=== PATIENT | male | born 2000 | race American Indian/Alaskan Native ===

== ENCOUNTER 2021-10-19 10:34 | Emergency (ER) | payer SELFPAY ==
[2021-10-19] MEDS ORDERED: LORazepam 2 MG/ML VIAL IV ONE (11:32)
[2021-10-19] MEDS ORDERED: ASPIRIN 325 MG TAB PO ONE (11:32)
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
[2021-10-19 12:54] LABS: Basophils % (Auto) 0.2 % (0.0-1.8); Eosinophils # (Auto) 0.1 K/mm3 (0.0-0.4); Eosinophils % (Auto) 0.6 % (0.0-4.3); Hematocrit 46.8 % (35.5-45.6); Hemoglobin 15.7 gm/dl (11.8-15.2); Lymphocytes # (Auto) 1.9 K/mm3 (1.2-5.4); Lymphocytes % (Auto) 20.7 % (13.4-35.0); Mean Corpuscular HGB Conc 33 % (32-34); Mean Corpuscular Volume 93 fl (84-94); Monocytes # (Auto) 0.9 K/mm3 (0.0-0.8); Monocytes % (Auto) 9.9 % (0.0-7.3); Platelet Count 275 K/mm3 (140-440); Red Blood Count 5.03 M/mm3 (3.65-5.03); Red Cell Distribution Width 13.7 % (13.2-15.2)
[2021-10-19 13:15] LABS: Creatine Kinase MB 7.9 ng/mL (0.0-4.0)
[2021-10-19 13:16] LABS: BUN/Creatinine Ratio 25; Blood Urea Nitrogen 25 mg/dL (9-20); Calcium 8.7 mg/dL (8.4-10.2); Hemolysis Index 9
[2021-10-19] MEDS ORDERED: SODIUM CHLORIDE 0.9% 1000 ML 1,000 ML IV ONE ×3 (13:19→21:11)
--- NOTE | 2021-10-19 14:30 | XRay Report ---
CHEST 1 VIEW INDICATION: chest pain. COMPARISON: None FINDINGS: Support devices: None. Heart: Within normal limits. Lungs/Pleura: No acute air space or interstitial disease. Additional findings: None. IMPRESSION: No acute findings. Signer Name: Mynor Hunt Jr, MD Signed: 10/19/2021 2:26 PM Workstation Name: [id number]
[2021-10-19 22:34] LABS: Bilirubin,Urine NEG (Negative); Blood,Urine NEG (Negative); Color,Urine Yellow (Yellow); Mucus,Urine FEW /HPF; Protein,Urine <15 mg/dL mg/dL (Negative); RBC,Urine < 1.0 /HPF (0.0-6.0)
[2021-10-19 22:42] LABS: Amphetamine Screen,Urine PRESUMPTIVE POSITIVE; Benzodiazepines Screen,Urine PRESUMPTIVE POSITIVE; Cannabinoid Screen,Urine PRESUMPTIVE POSITIVE; Cocaine Screen,Urine PRESUMPTIVE NEGATIVE; Methadone Screen,Urine PRESUMPTIVE NEGATIVE; Opiate Screen,Urine PRESUMPTIVE NEGATIVE
--- NOTE | 2021-10-20 11:30 | Electrocardiograph Report ---
[facility] Test Date: 2021-10-19 Test Time: 10:59:44 Pat Name: IBETH DEL REAL Department: Room: Gender: M Monotype Operator: NADIA : 2000 Requested By: FREDIS ROSS Order Number: [id number] Reading MD: Shankar Soria Measurements Intervals [place] Rate: 75 P: 6 PA: 146 QRS: 82 QRSD: 93 T: 65 QT: 372 QTc: 416 Interpretive Statements Sinus rhythm Inferior infarct, acute Borderline ST elevation, anterior leads No previous ECG available for comparison Electronically Signed On 10-20-2021 11:30:30 EDT by Shankar oSria
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
[2021-10-20 13:59] LABS: BUN/Creatinine Ratio 17; Blood Urea Nitrogen 15 mg/dL (9-20); Hemolysis Index 8
--- NOTE | 2021-10-20 16:12 | Event Note ---
Date: 10/20/21 (11:30 am) Progress FU assessment of patient in psych. Patient had presented with complaints of CP and feeling down about his brother's recent passing. Denied SI, HI @ the time and now. Uncxlear why patient was placed in psych. Was seen by psych today, who recommended d/c home. Denies CP @ this time. Denies SI, HI. Denies visual and auditory hallucinations. ED General adult EXAM - General General appearance: alert, in no apparent distress Limitations: No Limitations - Head Head exam: Positive: atraumatic, normocephalic - Eye Eye exam: PERRL, EOMI - ENT ENT exam: Positive: mucous membranes moist, other (airway patent) - Neck Neck exam: Positive: other (supple; no JVD) - Respiratory Respiratory exam: Positive: other (good air entry, nml I:E, CTAB, no use of CHRISSY) - Cardiovascular Cardiovascular Exam: Positive: regular rate. Negative: rubs, gallop - GI/Abdominal GI/Abdominal exam: Positive: soft, normal bowel sounds. Negative: distended, tenderness - Extremities Extremities exam: Positive: other (no lower extremity edema; non tender calves; neg Boris's sign bilaterally) - Back Back exam: full ROM. denies: tenderness - Neurological Neurological exam: Positive: alert, oriented X3, CN II-XII intact. Negative: motor sensory deficit - Psychiatric Psychiatric exam: Positive: normal affect. Negative: homicidal ideation, suicidal ideation - Skin Skin exam: Positive: warm, normal color ED Medical Decision Making - Lab Data Result diagrams: 10/19/21 12:20 10/20/21 13:27 Laboratory Results - last 72 hr 10/19/21 10/19/21 10/19/21 12:20 12:20 12:20 WBC 9.2 RBC 5.03 Hgb 15.7 H Hct 46.8 H MCV 93 MCH 31 MCHC 33 RDW 13.7 Plt Count 275 Lymph % (Auto) 20.7 [place] % (Auto) 9.9 H Eos % (Auto) 0.6 Baso % (Auto) 0.2 Lymph # (Auto) 1.9 [place] # (Auto) 0.9 H Eos # (Auto) 0.1 Baso # (Auto) 0.0 Seg Neutrophils % 68.6 Seg Neutrophils # 6.3 D-Dimer < 135.00 Sodium 134 L Potassium 4.6 Chloride 99.0 Carbon Dioxide 24 Anion Gap 16 BUN 25 H Creatinine 1.0 Estimated GFR > 60 BUN/Creatinine Ratio 25 Glucose 69 L Calcium 8.7 Total Creatine Kinase 1119 H CK-MB (CK-2) 7.9 H CK-MB (CK-2) Rel Index 0.7 Troponin T < 0.010 Urine Color Urine Turbidity Urine pH Ur Specific [place] Urine Protein Urine Glucose (UA) Urine Ketones Urine Blood Urine Nitrite Urine Bilirubin Urine Urobilinogen Ur Leukocyte Esterase Urine WBC (Auto) Urine RBC (Auto) U Epithel Cells (Auto) Urine Mucus Salicylates Urine Opiates Screen Urine Methadone Screen Acetaminophen Ur Barbiturates Screen Ur Phencyclidine Scrn Ur Amphetamines Screen U Benzodiazepines Scrn Urine Cocaine Screen U Marijuana (THC) Screen Drugs of Abuse Note Plasma/Serum Alcohol 10/19/21 10/19/21 10/19/21 12:20 12:20 12:20 WBC RBC Hgb Hct MCV MCH MCHC RDW Plt Count Lymph % (Auto) [place] % (Auto) Eos % (Auto) Baso % (Auto) Lymph # (Auto) [place] # (Auto) Eos # (Auto) Baso # (Auto) Seg Neutrophils % Seg Neutrophils # D-Dimer Sodium Potassium Chloride Carbon Dioxide Anion Gap BUN Creatinine Estimated GFR BUN/Creatinine Ratio Glucose Calcium Total Creatine Kinase CK-MB (CK-2) CK-MB (CK-2) Rel Index Troponin T Urine Color Urine Turbidity Urine pH Ur Specific [place] Urine Protein Urine Glucose (UA) Urine Ketones Urine Blood Urine Nitrite Urine Bilirubin Urine Urobilinogen Ur Leukocyte Esterase Urine WBC (Auto) Urine RBC (Auto) U Epithel Cells (Auto) Urine Mucus Salicylates 2.3 L Urine Opiates Screen Urine Methadone Screen Acetaminophen 5.0 L Ur Barbiturates Screen Ur Phencyclidine Scrn Ur Amphetamines Screen U Benzodiazepines Scrn Urine Cocaine Screen U Marijuana (THC) Screen Drugs of Abuse Note Plasma/Serum Alcohol < 0.01 10/19/21 10/19/21 10/19/21 16:33 22:19 22:19 WBC RBC Hgb Hct MCV MCH MCHC RDW Plt Count Lymph % (Auto) [place] % (Auto) Eos % (Auto) Baso % (Auto) Lymph # (Auto) [place] # (Auto) Eos # (Auto) Baso # (Auto) Seg Neutrophils % Seg Neutrophils # D-Dimer Sodium Potassium Chloride Carbon Dioxide Anion Gap BUN Creatinine Estimated GFR BUN/Creatinine Ratio Glucose Calcium Total Creatine Kinase 978 H CK-MB (CK-2) CK-MB (CK-2) Rel Index Troponin T Urine Color Yellow Urine Turbidity Clear Urine pH 5.0 Ur Specific [place] 1.027 Urine Protein <15 mg/dl Urine Glucose (UA) Neg Urine Ketones 80 Urine Blood Neg Urine Nitrite Neg Urine Bilirubin Neg Urine Urobilinogen 2.0 Ur Leukocyte Esterase Neg Urine WBC (Auto) 3.0 Urine RBC (Auto) < 1.0 U Epithel Cells (Auto) 1.0 Urine Mucus Few Salicylates Urine Opiates Screen Presumptive negative Urine Methadone Screen Presumptive negative Acetaminophen Ur Barbiturates Screen Presumptive negative Ur Phencyclidine Scrn Presumptive negative Ur Amphetamines Screen Presumptive positive U Benzodiazepines Scrn Presumptive positive Urine Cocaine Screen Presumptive negative U Marijuana (THC) Screen Presumptive positive Drugs of Abuse Note Disclamer Plasma/Serum Alcohol 10/20/21 10/20/21 13:27 13:27 WBC RBC Hgb Hct MCV MCH MCHC RDW Plt Count Lymph % (Auto) [place] % (Auto) Eos % (Auto) Baso % (Auto) Lymph # (Auto) [place] # (Auto) Eos # (Auto) Baso # (Auto) Seg Neutrophils % Seg Neutrophils # D-Dimer Sodium 137 Potassium 4.4 Chloride 103.8 Carbon Dioxide 24 Anion Gap 14 BUN 15 Creatinine 0.9 Estimated GFR > 60 BUN/Creatinine Ratio 17 Glucose 104 H Calcium 9.0 Total Creatine Kinase 708 H CK-MB (CK-2) CK-MB (CK-2) Rel Index Troponin T < 0.010 Urine Color Urine Turbidity Urine pH Ur Specific [place] Urine Protein Urine Glucose (UA) Urine Ketones Urine Blood Urine Nitrite Urine Bilirubin Urine Urobilinogen Ur Leukocyte Esterase Urine WBC (Auto) Urine RBC (Auto) U Epithel Cells (Auto) Urine Mucus Salicylates Urine Opiates Screen Urine Methadone Screen Acetaminophen Ur Barbiturates Screen Ur Phencyclidine Scrn Ur Amphetamines Screen U Benzodiazepines Scrn Urine Cocaine Screen U Marijuana (THC) Screen Drugs of Abuse Note Plasma/Serum Alcohol EKG #1: HR 72, SR, nml FL, narrow QRS, ST elevations in II, III, aVF, V3 - V6 without reciprocal ST depressions EKG #2: HR 72, SR, nml FL, narrow QRS, ST elevations in II, III, aVF, V3 - V6 without reciprocal ST depressions CXR: no acute cardiopulmonary process - Medical Decision Making likely 2/2 methamphetamine abuse with consequential rhabdomyolysis and superimposed on bereavement reaction. Pneumonia, pneumothorax, PE, KRAAN ruled out. Not suicidal or homicidal. Received NS 1L bolus x 2. IMPRESSIONS: 1. Chest pain 2. Amphetamine abuse 3. Rhabdomyolysis ED Disposition Disposition: HOME / SELF CARE / HOMELESS Is pt being admited?: No Does the pt Need Aspirin: No Condition: Stable Instructions: Nonspecific Chest Pain, Adult, Substance Use Disorder Additional Instructions: Professional and Agency Contacts To help [facility](26/12) [place] Crisis Line: 9-618-072-021 Suicide Prevention Line: Crisis Text Line: Text START to [phone] Emergency: 911 Outpatient [facility] Behavioral Health Resources: [facility]: [facility] [address] [place], [place] [address] [address] [facility] [address] [place] [address] Monday thru Monday - 8am - 5pm [facility] Address: [address] [place] [address] [facility]: [facility] Address: [address] [place] [address] Monday thru Monday- 7am-2pm [facility] Address: [address] [place] [address] Monday thru Monday: 8:30AM-5PM Referrals: JORDAN HARRIS MD [Primary Care Provider] - 3-5 Days Time of Disposition: 16:30
[2021-10-20 18:37] VITALS: BP 118/78
== END 2021-10-20 18:37 | disposition home or self-care (01) ==
LOC: ED 10:34
DX: R07.89 Other chest pain (principal); F15.10 Other stimulant abuse, uncomplicated; F12.90 Cannabis use, unspecified, uncomplicated; F17.210 Nicotine dependence, cigarettes, uncomplicated; Z63.4 Disappearance and death of family member; Z72.89 Other problems related to lifestyle; Z79.899 Other long term (current) drug therapy
CPT/HCPCS: 36415; 71045; 80048; 80307; 81001; 82550; 82553; 84484; 85025; 85379; 93005; 96360; 99285; J7030; 80320; G0480